=== PATIENT | female | born 1940 | race Caucasian/White ===

== ENCOUNTER → 2017-01-07 | Outpatient (CLI) | payer MEDICARE, BC ==
[~2017-01-07] MED LIST: ACET-2723 PO; CALC-750 PO; CHOL100018 PO; GUAI1TBM15 PO; IOHEXOL 300 MG/ML 100ml INJECTION ONE; LEVE500T9 PO; LISI10TA7 PO; MULT-933 PO; NORMAL SALINE 100 ML ONE; OMEP20CA10 PO; PRAV40TA3 PO; PROP80CA2 PO; RASA1TAB2 PO; ROPI4TAB4 PO; SALINE FLUSH 10ml SYRINGE ONE
[2017-01-07 13:34] LABS: BASOPHILS % (AUTO) 0.3 % (0-2); EOSINOPHILS # (AUTO) 0.2 T/MM3 (0-0.5); EOSINOPHILS % (AUTO) 2.7 % (0-4); HCT - HEMATOCRIT 42.2 % (36-46); HGB - HEMOGLOBIN 13.6 GM/DL (12-16); IMMATURE GRANULOCYTE # (AUTO) 0.01 T/MM3 (0.00-0.03); IMMATURE GRANULOCYTE % (AUTO) 0.2 % (0.0-0.5); LYMPHOCYTES # (AUTO) 1.4 T/MM3 (1-4.8); LYMPHOCYTES % (AUTO) 24.5 % (23-45); MEAN CORPUSCULAR HGB 30.3 UUG (26-34); MEAN CORPUSCULAR HGB CONC(MCHC 32.2 GM/DL (31-37); MEAN PLATELET VOLUME 11.2 UM3 (9.4-12.4); MONOCYTES # (AUTO) 0.4 T/MM3 (0-0.8); MONOCYTES % (AUTO) 7.5 % (0-9.0); NEUTROPHILS #(AUTO)-ABSOLUTE 3.8 T/MM3 (1.8-7.7); NEUTROPHILS % (AUTO) 64.8 % (33-66); RED BLOOD COUNT 4.49 M/MM3 (4.00-5.20); WBC - WHITE BLOOD COUNT 5.8 T/MM3 (4.5-11.0)
[2017-01-07 13:44] LABS: ANION GAP 14 MEQ/L (5-15); BUN/CREATININE RATIO 29 RATIO (6-26); CALCIUM 9.8 MG/DL (8.4-10.2); CHLORIDE 110 MEQ/L (98-107); CO2 - CARBON DIOXIDE 23 MEQ/L (22-30); CREATININE 0.7 MG/DL (0.7-1.2); GLOMERULAR FILTRATION RATE 81; GLUCOSE 117 MG/DL (65-110); POTASSIUM 4.1 MEQ/L (3.6-5); SODIUM 147 MEQ/L (134-144)
--- NOTE | 2017-01-07 17:17 | DI ---
EXAM: CT ABDOMEN W/CONTRAST [place] [facility] [place]: None available. HISTORY: ITS.REASON: R10.9 ABD PAIN TECHNIQUE: Axial images were obtained from the domes of the diaphragms to the iliac crests using 100 cc Omnipaque 300 contrast. The study was reconstructed into thinner axial sections and in coronal reformations. Study is reviewed in lung, soft tissue, bone and liver windows. The current CT scan was performed using radiation dose-reduction techniques. ABDOMINAL FINDINGS: HEART: Heart is enlarged. No significant pericardial effusion is identified. What is seen of the thoracic aorta and pulmonary arteries appear unremarkable. LUNG BASES: There is mild dependent atelectatic changes. LIVER: Diffusely hypodense which may represent fatty infiltration. There are rounded hypodense lesions within the medial and lateral segment of the left lobe of the liver which could represent cysts. SPLEEN: Unremarkable. GALLBLADDER: The gallbladder is surgically absent with surgical clips seen in the gallbladder fossa. PANCREAS: Unremarkable. ADRENAL GLANDS: Unremarkable. KIDNEYS: Unremarkable. No renal calculi or obstructive uropathy. The kidneys perfuse symmetrically VASCULATURE: The aorta, IVC, iliac vessels and other vascular structures appear unremarkable. ABDOMINAL LYMPH NODES: No lymphadenopathy is identified. Small lymph nodes are noted, but are not pathologically enlarged. BOWEL: Unremarkable. The stomach, duodenum, small bowel, and colon visualized appear unremarkable. ABDOMINAL WALL: Unremarkable. BONES: There are posterior spinal fixation rods and pedicle screws L4, L5, and S1. There is disc space narrowing and endplate sclerosis at L2-3, L3-4, L4-5, and L5-S1. Schmorl's node formation is seen at the superior endplate of L1. Posterior lateral spinal fusion is seen of the lower lumbar spine. IMPRESSION: 1. Fatty infiltration of the liver. 2. Status post cholecystectomy without intra or intrahepatic ductal dilatation. 3. Two hypodense lesions in the left lobe of the liver which may represent cysts. 4. Cardiomegaly. .
== END ==
LOC: IMA 12:56
PROVIDERS: ATTEND Internal Medicine Cardiovascular Disease
DX: R10.9 Unspecified abdominal pain (principal); I10 Essential (primary) hypertension; I51.7 Cardiomegaly; R91.8 Other nonspecific abnormal finding of lung field; K76.0 Fatty (change of) liver, not elsewhere classified; K76.9 Liver disease, unspecified; Z90.49 Acquired absence of other specified parts of digestive tract
CPT/HCPCS: 36415; 74160; 80048; 85025; J7050; Q9967